=== PATIENT | female | born 1950 | race Caucasian/White ===

== ENCOUNTER 2017-05-15 11:29 | Emergency (ER) | payer BC ==
--- NOTE | 2017-05-15 13:06 | RAD ---
INDICATION: Left lower leg injury. TECHNIQUE: 2 views of the left lower leg were obtained. FINDINGS: The bones are normal alignment. No fracture is seen. IMPRESSION: NO EVIDENCE OF FRACTURE.
--- NOTE | 2017-05-15 13:07 | RAD ---
INDICATION: Left knee injury. TECHNIQUE: 4 views of the left knee were obtained. FINDINGS: There is soft tissue swelling anterior to the patella. The bones are in normal alignment. No joint effusion or fracture is seen. Joint spaces appear maintained. IMPRESSION: NO EVIDENCE FOR FRACTURE.
--- NOTE | 2017-05-15 13:09 | RAD ---
INDICATION: Left foot injury. TECHNIQUE: 3 views of the left foot were obtained. FINDINGS: There appears to be soft tissue swelling over the dorsal medial aspect of the foot. The bones are normal alignment. No fracture is seen. Joint spaces appear maintained. There is vascular calcifications and prominent calcaneal spurs. IMPRESSION: SOFT TISSUE SWELLING, NO FRACTURE IS SEEN.
[2017-05-15 14:09] VITALS: BP 127/68
--- NOTE | 2017-06-04 09:02 | UC ---
Francis Michael Angela, scribed for Haley Khan MD on 05/15/17 at 1219 . Lower Extremity/Ankle HPI - HPI Summary HPI Summary: This pt is a 66 y/o female presenting to [facility] c/o left upper leg pain and swelling, and left ankle pain s/p fall this morning at 0935. She was walking on a flat surface and was wearing shorts when she fell onto cement while standing. Pt reports she fell on her left knee. She states the area below her knee began to swell up and felt hot to the touch. Her pain is aggravated with ambulation. 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 Pt notes she has partial hip replacement on the right after she fell on ice. Pt is not on any anticoagulants. - History of Current Complaint Chief Complaint: UCLowerExtremity Stated Complaint: LEG INJURY Time Seen by Provider: 05/15/17 12:11 Hx Obtained From: Patient Onset/Duration: Sudden Onset - s/p fall this morning Aggravating Factor(s): Standing, Ambulation Alleviating Factor(s): Nothing - Allergies/Home Medications Allergies/Adverse Reactions: Allergies Allergy/AdvReac Type Severity Reaction Status Date / Time Codeine Allergy Severe Unknown Verified 05/15/17 11:45 Reaction Details Penicillins Allergy Severe Anaphylatic Verified 05/15/17 11:45 Shock Sulfa Drugs Allergy Intermediate Hives Verified 05/15/17 11:45 Diphenhydramine Allergy Unknown Verified 05/15/17 11:45 [From Benadryl] Reaction Details Garlic Allergy Unknown Verified 05/15/17 11:45 Reaction Details Onion Allergy Unknown Verified 05/15/17 11:45 Reaction Details Sassafras Oil Allergy Unknown Verified 05/15/17 11:45 Reaction Details Ciprofloxacin AdvReac Severe Diarrhea Verified 05/15/17 11:45 Pioglitazone [From Actos] AdvReac Diarrhea Verified 05/15/17 11:45 sleeping pills Allergy Hallucinati Uncoded 05/15/17 11:45 ons Home Medications: Home Medications Atorvastatin* [Lipitor*] 20 mg PO 1700 05/15/17 [History Confirmed 05/15/17] Azelastine HCl 137 mcg NA 05/15/17 [History] Cyclobenzaprine TAB* [Flexeril 10 MG TAB*] 10 mg PO BID PRN 05/15/17 [History Confirmed 05/15/17] Lisinopril [Lisinopril 2.5 MG-] 05/15/17 [History] PMH/Surg Hx/FS Hx/Imm Hx Endocrine History: Diabetes Cardiovascular History: Hypertension Respiratory History: Asthma - Surgical History Surgical History: Yes Surgery Procedure, Year, and Place: c section. partical hip replacement. WISDOM TEETH EXTRACTION - Family History Known Family History: Positive: Cardiac Disease, Hypertension, Diabetes, Other - LIVER CANCER - Social History Alcohol Use: Occasionally Substance Use Type: None Smoking Status (MU): Never Smoked Tobacco - Immunization History Most Recent Influenza Vaccination: 2012 Most Recent Tetanus Shot: UNSURE Review of Systems Constitutional: Negative Skin: Negative Eyes: Negative ENT: Negative Respiratory: Negative Neurovascular: Negative Musculoskeletal: Other: - left leg swelling and pain Neurological: Negative All Other Systems Reviewed And Are Negative: Yes Physical Exam Triage Information Reviewed: Yes Appearance: Well-Nourished Vital Signs: Initial Vital Signs Temp 98.1 F 05/15/17 11:40 Pulse 106 05/15/17 11:40 Resp 18 05/15/17 11:40 BP 127/75 05/15/17 11:40 Pulse Ox 97 05/15/17 11:40 Vital Signs Reviewed: Yes ENT Exam: Normal Respiratory Exam: Normal, Other - no dyspnea, no tachypnea, normal respiratory rate Cardiovascular Exam: Normal Cardiovascular: Positive: Other: - Heart rate regular, good general skin color, good capillary refill Abdominal Exam: Normal Abdomen Description: Positive: Nontender, No Organomegaly, Soft Bowel Sounds: Positive: Present Musculoskeletal: Positive: Other: - RLE: *exam* Neurological Exam: Normal - nonfocal, grossly intact Psychological Exam: Normal - conversing easily and appropriately Skin Exam: Normal - no visible or reported rash Diagnostics - Radiology Left Lower Leg XR Xray Interpretation: No Acute Changes - IMPRESSION: No evidence of fracture. ED physician has reviewed this radiology report and agrees. Radiology Interpretation Completed By: Radiologist Left Knee XR Xray Interpretation: No Acute Changes - IMPRESSION: No evidence for fracture. ED physician has reviewed this radiology report and agrees. Radiology Interpretation Completed By: Radiologist Left Foot XR Xray Interpretation: Positive (See Comments) - IMPRESSION: Soft tissue swelling , no fracture seen. ED physician has reviewed this radiology report and agrees. Radiology Interpretation Completed By: Radiologist Lower Extremity Course/Dx - Course Course Of Treatment: Pt declines analgesics. Reviewed xray, report review ( incl vasc calc) with pt. Reviewed results, coa, f/u recommendations. Questions answered to the best of my ability. - Differential Dx/Diagnosis Provider Diagnoses: leg and knee contusion / hematoma. heel spur Discharge - Discharge Plan Condition: Stable Disposition: HOME Patient Education Materials: Contusion in Adults (ED), Hematoma (ED), Heel Spur (ED) Forms: *Gen. Provider Communication, *Work Release Referrals: Sandee Louis MD [Primary Care Provider] - Additional Instructions: Follow up primary care physician per routine, next couple weeks if possible. Marcello as needed for comfort. Elevate your leg MUCH POSSIBLE. Please seek medical attention for worse or new problems. Ibuprofen as discussed (over the counter ok), as needed for pain / inflammation. Recommend at least 2x / day for the next 3 days. re: Heel spur - please follow up with your industrial engineering technician (next couple weeks, if possible). re: vascular calcification on x-ray - please follow with your primary care physician about this The documentation as recorded by the Francis lo Angela accurately reflects the service I personally performed and the decisions made by me, Haley Khan MD.
== END 2017-05-15 14:09 | disposition home or self-care (01) ==
LOC: UCEAST 11:29
DX: S80.02XA Contusion of left knee, initial encounter (principal); W18.30XA Fall on same level, unspecified, initial encounter; Y93.01 Activity, walking, marching and hiking; Y92.9 Unspecified place or not applicable; E11.9 Type 2 diabetes mellitus without complications; I10 Essential (primary) hypertension; J45.909 Unspecified asthma, uncomplicated; Z96.641 Presence of right artificial hip joint; Z88.1 Allergy status to other antibiotic agents; Z88.5 Allergy status to narcotic agent; Z88.0 Allergy status to penicillin; Z88.2 Allergy status to sulfonamides
CPT/HCPCS: 99212; G0463

== ENCOUNTER 2017-07-23 06:11 | Inpatient (IN) | payer BC ==
--- NOTE | 2017-07-09 18:13 | HP ---
HISTORY AND PHYSICAL: DATE OF ADMISSION/SURGERY: 07/23/17 DATE OF VISIT: 07/04/17 ATTENDING SURGEON: Dr. Kenan Lobo * (DICTATED BY CHRISTOFER HOWARD) PROCEDURE: Right hip conversion from hemiarthroplasty to a total hip arthroplasty. HISTORY OF PRESENT ILLNESS: The patient is a very pleasant [id number], who presents today for history and physical examination prior to undergoing her right hip surgery. In brief, the patient sustained a right hip fracture in 2009 and underwent a non-cemented hemiarthroplasty; however, developed pain over the past few months with x-ray showing the metal component of hemiarthroplasty was wearing through the acetabular bone. It was recommended by Dr. Lobo and by Dr. Grace that the patient undergo a full arthroplasty to prevent traumatic protrusio defect. The patient was in agreement with this. PAST MEDICAL HISTORY: 1. Asthma without recent exacerbation. 2. History of chronic coughing. 3. Coronary arterial disease. 4. Diabetes mellitus with an A1c around 8. 5. Frequent UTIs. 6. Hypertension. 7. Osteoarthritis. PAST SURGICAL HISTORY: 1. Right hip fracture, 2009, status post hemiarthroplasty. 2. , 1982. 3. [place] teeth extraction, 1986. MEDICATIONS: 1. Naproxen 50 mg 1 tablet twice daily as needed. 2. Aspirin 81 mg p.o. daily. 3. Cyclobenzaprine 10 mg 1 tablet at night as needed for spasms. 4. Advair Diskus 500/50 mcg/dose 1 puff p.o. b.i.d. 5. Lantus 40 units at bedtime. 6. Ibuprofen as needed. 7. Montelukast sodium 10 mg 1 tablet by mouth daily. 8. Levocetirizine dihydrochloride 5 mg 1 tablet by mouth daily. 9. Fluticasone 50 mcg/ACT 2 sprays in each nostril as needed. 10. Albuterol 1 nebulizer up to 4 times a day as needed. 11. Proventil inhaler 108 mcg/ACT 2 puffs by mouth every 4 hours. 12. Lisinopril 5 mg 1 tablet by mouth daily. 13. Atorvastatin 20 mg p.o. daily. 14. Glimepiride 2 mg daily. 15. Nystatin powder topically as needed to affected areas. SOCIAL HISTORY: The patient currently lives in a flat with 5 roommates. She is on 1 story. She denies any tobacco use. Positive intermittent alcohol use. Denies any intervenous drug use. 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 REVIEW OF SYSTEMS: General: Negative for fevers, chills, night sweats. The patient does have a history of body shaking after undergoing anesthesia in the past. HEENT: Negative for headaches, lightheadedness, or syncopal episodes. Poor dentition with no recent history of infection. Integument: Negative for abrasions, lesions, open wounds, or sores. Cardiothoracic: Negative for chest pain, palpitation, or edema. Positive for hypertension. Pulmonary: Positive for shortness of breath. Positive for chronic cough. Positive for history of asthma. No history of COPD. GI: Negative for nausea, vomiting, constipation, diarrhea, or GERD. : Positive for urinary tract infections with her last infection approximately 2 years ago. Musculoskeletal: Positive for generalized arthritis. Positive for right hip pain. Neuro: Negative for paresthesias, numbness. No history of seizure, stroke, or epilepsy. Endocrine : Positive for diabetes. Negative for thyroid disease. Hematologic: Negative for easy bruising or anemia. No history of excessive bleeding. No history of DVTs or PEs. Infectious Disease: Negative for MRSA, hepatitis C or HIV. PHYSICAL EXAMINATION GENERAL: Well appearing, no acute distress. Alert and oriented, appearing older than stated age. VITAL SIGNS: Height 63 inches, weight 180 pounds, blood pressure 122/78, respirations 14, temperature 98.0, pain level is 4/10, BMI 34. HEENT: Normocephalic, atraumatic. Poor dentition with no signs of obvious infection. PULMONARY: Clear to auscultation bilaterally. No crackles, rhonchi, or wheezes. Mild decreased breath sounds in bilateral bases. CARDIAC: Regular rate and rhythm. No murmurs, gallops, or rubs. No edema in the bilateral lower extremities. ABDOMEN: Soft, nontender, nondistended. Positive obese. Negative CVA tenderness bilaterally. NEUROLOGIC: Alert and oriented x2. Cranial nerves grossly intact. Sensation is intact to light touch in bilateral lower extremities. MUSCULOSKELETAL: Positive tenderness over the greater trochanteric area of the right hip and in the groin region. Mildly antalgic gait favoring the right- hand side. DIAGNOSTIC STUDIES: The patient underwent a right hip and pelvic x-ray obtained on 11/22/16, which showed a right hip arthroplasty. IMPRESSION AND PLAN: The patient is a very pleasant 67-year-old female, who has elected to undergo a conversion from a right hemiarthroplasty to a full right hip arthroplasty due to increased pain. She will obtain clearance by her primary physician this week. She will undergo preadmission testing later on this afternoon, which will be followed up with. She had no other questions or concerns, but will contact us if any do arise. CHRISTOFER HOWARD [id number]/[facility] #: [id number] BUDDY
[~2017-07-23 06:11] MED LIST: Buffered Lidocaine 0.9% SYRIN* 5 ML/SYR SYRINGE INTRADERM ONE; Buffered Lidocaine 0.9% SYRIN* 5 ML/SYR SYRINGE ONE; Clindamycin 900 MG IVPREMIX(* 900 MG/50 ML SDV IV ONE; Famotidine IV* 10 MG/ML 2 ML (20 mg) IV ONE; Famotidine IV* 10 MG/ML 2 ML (20 mg) ONE; Scopolamine 1.5 mg* PATCH ONE; Scopolamine 1.5 mg* PATCH TRANSDERM ONE
[2017-07-23] MEDS ORDERED: Bupivacaine 0.5% SDV PF* 30 ML VIAL ONE (07:23)
[2017-07-23] MEDS ORDERED: Midazolam* 1 MG/ML 5 ML VIAL (5 MG) ONE (07:24)
[2017-07-23] MEDS ORDERED: Morphine PF AMP (0.5MG/ML)* 5 MG/10 ML AMP ONE (07:24)
[2017-07-23] MEDS ORDERED: fentaNYL* 50 MCG/ML 2 ML VIAL (100 MCG VIAL) ONE (07:24)
[2017-07-23] MEDS ORDERED: Propofol* 10 MG/ML 20 ML BTL IV PUSH ONE (07:58)
[2017-07-23] MEDS ORDERED: Lidocaine 2% PF * 5 ML VIAL ONE (07:58)
[2017-07-23] MEDS ORDERED: Acetaminophen IV 1GM/100ML * 1,000 MG/100 ML VIAL IVPB ONE (08:30)
[2017-07-23] MEDS ORDERED: fentaNYL* 50 MCG/ML 2 ML VIAL (100 MCG VIAL) IV PRN (08:30)
[2017-07-23] MEDS ORDERED: oxyCODONE TAB* 5 MG TAB PO PRN ×2 (08:30→08:33)
[2017-07-23] MEDS ORDERED: Nalbuphine* 20 MG/ML 1 ML VIAL IV PRN ×2 (08:30→08:33)
[2017-07-23] MEDS ORDERED: PROCHLORPERAZINE INJ 5 MG/ML 2 ML VIAL IV PRN (08:30)
[2017-07-23] MEDS ORDERED: Ondansetron INJ* 2 MG/ML VIAL IV PRN (08:33)
[2017-07-23] MEDS ORDERED: Naloxone* 0.4 MG/ML 1 ML VIAL IV PRN (08:33)
[2017-07-23] MEDS ORDERED: EPHEDrine (Pressors)* 50 MG/ML VIAL ONE (09:26)
[2017-07-23] MEDS ORDERED: Ondansetron INJ* 2 MG/ML VIAL ONE (09:28)
[2017-07-23] MEDS ORDERED: Polyethylene Glycol 3350* 17 GM PACKET PO PRN (10:06)
[2017-07-23] MEDS ORDERED: Bisacodyl SUPP* 10 MG SUPP PR PRN (10:06)
[2017-07-23] MEDS ORDERED: Cyclobenzaprine TAB* 10 MG PO PRN (10:18)
[2017-07-23] MEDS ORDERED: Acetaminophen IV 1GM/100ML * 100 ML ONE (10:34)
[2017-07-23] MEDS ORDERED: Albuterol 2.5 MG/3 ML NEB.SOL* (0.083%) INH PRN (11:10)
[2017-07-23] MEDS ORDERED: Dextrose 50% Syringe 50 ML* 25 GM/50 ML SYRINGE IV PUSH PRN (11:10)
--- NOTE | 2017-07-23 12:11 | RAD ---
HISTORY: Status post right hip arthroplasty COMPARISONS: May 23, 2017 VIEWS: 1, frontal view of the pelvis FINDINGS: BONE DENSITY: Normal. BONES: There has been interval conversion of a right hip] arthroplasty to total arthroplasty . There is no hardware failure or osteolysis. JOINTS: The patient is status post right hip arthroplasty. ALIGNMENT: There is no dislocation. SOFT TISSUES: Unremarkable. OTHER FINDINGS: None. IMPRESSION: STATUS POST RIGHT HIP ARTHROPLASTY
[2017-07-23] MEDS: Insulin LISPRO* 1 UNITS UNIT SUBCUT SCH ×2 (12:44→17:04)
--- NOTE | 2017-07-23 13:32 | CONS ---
CC: Sandee Louis MD; Dr. Lobo * CONSULTATION REPORT: DATE OF CONSULT: 07/23/17 PRIMARY CARE PROVIDER: Sandee Louis MD ATTENDING PHYSICIAN WHILE IN THE HOSPITAL: Heather Bennett MD (report dictated by Edilberto Holloway NP) REQUESTING PHYSICIAN FOR CONSULT: Dr. Lobo REASON FOR MEDICAL CONSULTATION: Evaluation and medical management of comorbid medical conditions. HISTORY OF PRESENT ILLNESS: Mrs. Riggins is a 67-year-old female patient who carries a history of asthma, diabetes, hypertension, arthritis, hyperlipidemia, and a history of anxiety. She comes in to our orthopedic service today for an elective right total hip. She was seen in the outpatient setting about 7 years ago. She had a right hip kiki secondary to a hip fracture. In the last several months, she has been having pain on this hip. X-ray imaging was obtained and it did show that the components were failing. So at that point, it was felt that she would benefit from a total hip, which she underwent today. She was evaluated in the PACU. She does not appear to be in any acute distress. She is awake, she is alert, she is oriented x3. She states that she is not having any chest pain or shortness of breath. She denies having any abdominal pain. She states she does not feel nauseous. She states she cannot move her toes quite yet and has no feeling down there. She did undergo a spinal. She states that she is not having any pain. She just feels tired. Again, she does have a significant medical history. So, we were asked to evaluate and consult. PAST MEDICAL HISTORY: Significant for: 1. Asthma. 2. Anxiety. 3. Diabetes. 4. Hypertension. 5. Arthritis. 6. Hyperlipidemia. PAST SURGICAL HISTORY: 1. She has had right hip hemiarthroplasty. Now, she is status post right total hip arthroplasty. 2. . 3. Teeth extraction. MEDICATIONS: Home meds according to the preop list includes: 1. Naproxen 500 mg p.o. b.i.d. 2. Singulair 10 mg p.o. daily. 3. Lisinopril 5 mg daily. 4. Levocetirizine 5 mg at bedtime. 5. Lantus 40 units subcu at bedtime. 6. Glimepiride 2 mg p.o. b.i.d. 7. Advair 1 puff inhaled b.i.d. 8. Flexeril 10 mg daily. 9. Vitamin D3 3000 units p.o. daily. 10. Azelastine 137 mcg nasally in the morning. 11. Lipitor 20 mg daily. 12. Acetaminophen 650 mg every 4 hours as needed. 13. Albuterol 2 puffs inhaled every 4 to 6 hours as needed for shortness of breath. ALLERGIES TO MEDICATIONS: Include PENICILLIN, ACTOS, CODEINE, BENADRYL, and CIPRO. FAMILY HISTORY: Both her parents were diabetic. Her mother did have liver cancer. SOCIAL HISTORY: She does not smoke. She rarely drinks alcohol, may be once a year. Her surrogate decision maker is her daughter. REVIEW OF SYSTEMS: There is no documented fever. She denied having any significant weight change. There was no double vision. She denies having any ear discharge. There is no rhinorrhea. No sore throat. No thyroid enlargement. She denies having any chest pain. No orthopnea. There is no nocturnal dyspnea. She denies having any abdominal pain. There is no nausea, no vomiting. There was no dysuria, no frequency. There was no seizure. No loss of consciousness. No pruritus and no skin ulcerations. Review of 14 systems completed, all others negative. PHYSICAL EXAMINATION: Vital Signs: Blood pressure 100/50, pulse 76, respirations 17, O2 sat 100% on 2 L, temperature 96.8. General: At this time, Mrs. Riggins is a 67-year-old female patient. She is sitting in the PACU bed. She does not appear to be in any acute distress. HEENT: Head: Atraumatic, normocephalic. Eyes: EOMs intact. Sclerae anicteric, not pale. Neck: Supple. Throat: Oral mucosa appears to be moist. No oropharyngeal erythema. Heart sounds S1, S2. Regular rate and rhythm. No murmurs, rubs, or gallops. Lungs: Clear to auscultation. No wheezes, rales, or rhonchi. Abdomen: Soft, flat, nontender. Bowel sounds hypoactive. Extremities: She is not moving the lower extremities. At this point, she did have a spinal. She is moving the upper extremities with 5/5 strength. Neurologically, the patient is awake. She is alert. She is oriented x3. No gross focal deficits. Skin: Intact with the exception she has an incision to the right hip, which is covered with dressing. It is clean, dry, and intact. LABORATORY DATA/DIAGNOSTIC STUDIES: Preop WBC is 8.4, RBC of 4.77, hemoglobin of 13.8, hematocrit of 40, platelet count of 240. PTT of 22.4. INR of 0.93. Sodium is 137, potassium 4, chloride 100, bicarb 32, BUN 16, creatinine of 0.76 , glucose was 182. Her A1c was 8.6 preop. Urine showed 2+ leukocyte esterase, 3+ wbc, 3+ urine bacteria, which did grew out E. coli and according to notes was treated. She had an EKG preop, which showed a normal sinus rhythm with a rate of 98. No ST elevations or T wave inversions. Old medical records were reviewed. She did have a chest x-ray, which showed no active cardiopulmonary disease. ASSESSMENT AND PLAN: Mrs. Riggins is a 67-year-old female patient coming in to the orthopedic services today for a right total hip arthroplasty. We were asked to evaluate and consult. Recommendations at this point are: 1. Status post right total hip arthroplasty. I will defer the management to Dr. Lobo and his team. 2. Asthma. I have ordered p.r.n. albuterol and incentive spirometry has been ordered as well by the primary team. 3. Anxiety. Supportive care. 4. Diabetes. lispro sliding care. I will put her on 20 units of Lantus until she is taking good p.o. and I will put her on 40. 5. Hypertension. She did have a spinal anesthetic. Her blood pressure down here has been in the 100 to 110. My plan will be to just hold her lisinopril and restart it when blood pressure increases after spinal anesthetic wears off. 6. Arthritis. Continue with her current medical management. She has p.r.n. pain management has been ordered and I will defer management to Dr. Lobo and her primary. 7. Hyperlipidemia. Continue statin therapy. 8. Deep vein thrombosis prophylaxis. Defer to the primary team. 9. Code status. Full code. 10. Fluids, electrolytes, and nutrition. I would recommend a consistent carb diet. TIME SPENT: On consult 60 minutes, greater than half the time spent face-to- face with the patient obtaining my history and physical, the other half time spent going over plan of care with the patient and implementing plan of care. I did discuss this with my attending, Dr. Bennett, she is in agreement. EDILBERTO HOLLOWAY NP [id number]/[facility] #: [id number] BUDDY
--- NOTE | 2017-07-23 14:23 | OP ---
DATE OF OPERATION: 07/23/17 - ROOM #342 DATE OF : 52. ATTENDING SURGEON: Kenan Lobo MD. ASSISTANTS: 1. Haley Santizo RPA 2. Sofya Gomez NP. ANESTHESIA: Spinal sedation. PRE-OPERATIVE DIAGNOSIS: Failing right hip hemiarthroplasty. POST-OPERATIVE DIAGNOSIS: Failing right hip hemiarthroplasty. OPERATIVE PROCEDURE: 1. Revision right hip hemiarthroplasty. 2. Right total hip arthroplasty. ESTIMATED BLOOD LOSS: 100 mL. COMPLICATIONS: None. HARDWARE: Trilogy 46 mm cup with 2 screws, + 0, 28 mm head. SUMMARY: Ms. Riggins is now a 67-year-old female who 7 years ago had fallen and sustained a right hip fracture. She underwent a right hip hemiarthroplasty on [facility] and had done well. Over the past 9 months or so however, her x- rays have changed where the monoblock head has been starting to wear into her acetabulum. She had a good several mm of bone for several years between the head and the pelvis, but this is narrowed such that it appeared that she had lost most of the bone and the femoral head would become a protrusio into the pelvis shortly. I discussed with her a revision of the hemiarthroplasty to a total hip arthroplasty and while reluctant to undergo surgery, she eventually had realized that it would be better if something done before she fell and the femoral head caused a protrusio defect. Risks of surgery such as infection, scar formation, stiffness, DVT, pulmonary embolism, hardware failure, as well as instability and leg length discrepancy were some of the risks discussed. She had been declared medically optimized and wished to proceed. DESCRIPTION OF PROCEDURE: The patient was brought to the OR and spinal anesthesia was introduced. Marin catheter was then placed. She was then rolled into the left lateral decubitus position and an axillary roll was placed. She was quite comfortable in that position. Right hip area was prepped and then draped. Haley Santizo was present through positioning, draping, surgical approach, positioning of the implants and closure. The case could not have been donne without an financial assistant. Old incision was used and an incision was carried down through the skin and subcutaneous scar. The scar was still fairly dense and I continued to cut through the scar towards the greater trochanter until I encountered fascia. West was then used to peel some of the scar away from the fascia and eventually the fascia was nicely exposed. Sharp incision was made and bursal-like tissue was present over the greater trochanter. Electrocautery was used to take this down. I tried to come under her gluteus medius/gluteus minimus, but it was difficult to tell with the tissue planes because of the scar. Dissection was then began right along the back side of the greater trochanter, and I knew I was in the right area as I came across the Ethibond sutures that I used to repair posterior capsule and short external rotators. Eventually, neck and head were exposed and a small T- capsulotomy was made. It was seen where she had worn through the acetabulum toward the back side a little bit as well, as the bone was very thin right in this area. Using the pickups, I was able to peel it back and it broke off. It was however no more than 2 or 3 mm in width/thickness. Head was then easily dislocated. Remaining thin bone along the edge of the acetabulum was then removed using a rongeur. Monoblock head was then removed using the head disimpacters. Curette was then used to scrape the medial wall and I could feel that I had a solid acetabulum all the way around. There were no bony holes. Curette was used to scrape some of the soft tissues away and then a 44 followed by 45 reamer were then run. I had nice bleeding bone all around. A 46 mm cup was then impacted into place. Two screws were placed and a wonderful bite was obtained. Trial liner was placed and she was trialed with a 0 head. With a flat liner, she tended to leave her out at about 30 degrees of internal rotation with a hip in neutral and full adduction. She was then trialed with an elevated liner and would only start to leave her out at 45 degrees and did not come out until 60. Her leg length appeared good with a 0, but a little long with a 3.5. Trial liner and head were removed and an elevated liner was then impacted into place. She was again trialed and I decided to go with a 0. The 0 head was then impacted into place and the hip was again copiously pulse lavaged. Six liters will be used through the case. Capsule and scar of the short external rotators were all repaired together to the posterior aspect of the greater trochanter once again. Fascia was repaired using interrupted #1 Vicryl sutures. Subcutaneous tissues were reapproximated with 2-0 Vicryl. Skin was closed using kym. Sterile dressing was applied. The patient was then rolled on to the hospital bed and was stable on transfer to the recovery room. [id number]/[facility] #: [id number] BUDDY
[2017-07-23] MEDS: Clindamycin 600 MG IVPREMIX(* 600 MG/50 ML SDV IV SCH (16:41)
[2017-07-23] MEDS: Atorvastatin* 20 MG TAB PO SCH (16:48)
[2017-07-23] MEDS ORDERED: Warfarin TAB(*) 4 MG PO ONE (17:00)
[2017-07-23] MEDS: Acetaminophen TAB* 325 MG PO SCH (18:15)
[2017-07-23] MEDS: Mometasone/Formoter 200/5 MDI INH SCH (19:50)
--- NOTE | 2017-07-23 20:23 | RAD ---
INDICATION: Cough COMPARISON: Chest x-ray dated July 04, 2017 TECHNIQUE: Single AP portable view of the chest was obtained. FINDINGS: Image quality is compromised due to the relative inferiority of a portable chest x-ray. The heart and mediastinum exhibit normal size and contour. The lungs are grossly clear. There is no evidence of a large pleural effusion. Visualized bones are normal for the patient's age. IMPRESSION: No radiographic evidence for acute cardiopulmonary abnormality on this portable chest x-ray.
[2017-07-23] MEDS: Montelukast Sodium TAB* 10 MG PO SCH (21:36)
[2017-07-23] MEDS: Cetirizine* 10 MG TAB PO SCH (21:37)
[2017-07-23] MEDS: Docusate CAP* 100 MG PO SCH (21:37)
[2017-07-23] MEDS: Magnesium Hydroxide LIQ* 30 ML UDC PO SCH (21:37)
[2017-07-23] MEDS: Insulin GLARGINE(*) 1 UNITS UNIT SUBCUT SCH (21:40)
[2017-07-24] MEDS ORDERED: Morphine INJ* 2 MG/ML 1 ML CARPUJECT IV PRN
[2017-07-24] MEDS ORDERED: Ondansetron TAB* 4 MG PO PRN
[2017-07-24] MEDS ORDERED: Ondansetron INJ* 2 MG/ML VIAL IV PRN
[2017-07-24] MEDS: Clindamycin 600 MG IVPREMIX(* 600 MG/50 ML SDV IV SCH ×2 (00:19→07:46)
[2017-07-24] MEDS: Acetaminophen TAB* 325 MG PO SCH ×2 (01:55→10:36)
[2017-07-24] MEDS: oxyCODONE TAB* 5 MG TAB PO PRN ×4 (03:18→22:41)
[2017-07-24 05:07] LABS: Hematocrit 32 % (35-47); Mean Corpuscular HGB Conc 34 g/dl (31-36); Mean Corpuscular Hemoglobin 29 pg (27-31); Mean Corpuscular Volume 84 fL (80-97); Mean Platelet Volume 8 um3 (7.4-10.4); Red Blood Count 3.82 10^6/ul (4.0-5.4); Red Cell Distribution Width 13 % (10.5-15); White Blood Count 11.5 10^3/ul (3.5-10.8)
[2017-07-24 05:40] LABS: BUN/Creatinine Ratio 13.4 (8-20); Calcium 8.2 mg/dL (8.6-10.3); EGFR African American 113.3 (>60); EGFR Non-African American 88.1 (>60); Potassium 3.7 mmol/L (3.5-5.0)
[2017-07-24] MEDS: Magnesium Hydroxide LIQ* 30 ML UDC PO SCH ×2 (07:50→20:50)
[2017-07-24] MEDS: AZELASTINE HCL 137 MCG SCH (07:53)
[2017-07-24] MEDS: Mometasone/Formoter 200/5 MDI INH SCH ×2 (07:53→20:42)
[2017-07-24] MEDS: Docusate CAP* 100 MG PO SCH ×2 (07:53→20:51)
[2017-07-24] MEDS: Vitamin THERAPEUTIC TAB PO SCH (07:54)
--- NOTE | 2017-07-24 07:54 | PN ---
Progress Note - Progress Note Date of Service: 07/24/17 SOAP: Subjective: []Patient seen OOB in chair. Pain is tolerable. Marin out this morning without urination yet. +vomit yesterday night, none since. Using incentive spirometer. No chest pain, shortness of breath, chills, nausea, vomiting, dizziness or leg numbness. Objective: [] Vital Signs Temp 99.1 F 07/24/17 03:17 Pulse 101 07/24/17 03:17 Resp 16 07/24/17 05:35 BP 112/53 07/24/17 03:17 Pulse Ox 92 07/24/17 03:17 Intake & Output 07/23/17 07/24/17 07/24/17 18:59 06:59 18:59 Intake Total 2260 225 Output Total 1275 850 Balance 985 -625 Intake: IV Fluids 2050 CLINDAMYCIN 900MG 50 LR 2000 Oral 210 225 Output: Urine 400 Marin 900 450 Emesis 375 Other: Estimated Blood Loss 100 Comment Laboratory Last Values WBC 11.5 10^3/ul (3.5-10.8) H 07/24/17 04:49 RBC 3.82 10^6/ul (4.0-5.4) L 07/24/17 04:49 Hgb 11.0 g/dl (12.0-16.0) L 07/24/17 04:49 Hct 32 % (35-47) L 07/24/17 04:49 MCV 84 fL (80-97) 07/24/17 04:49 MCH 29 pg (27-31) 07/24/17 04:49 MCHC 34 g/dl (31-36) 07/24/17 04:49 RDW 13 % (10.5-15) 07/24/17 04:49 Plt Count 187 10^3/ul (150-450) 07/24/17 04:49 MPV 8 um3 (7.4-10.4) 07/24/17 04:49 Neut % (Auto) 78.4 % (38-83) 07/24/17 04:49 Lymph % (Auto) 12.7 % (25-47) L 07/24/17 04:49 [place] % (Auto) 8.3 % (1-9) 07/24/17 04:49 Eos % (Auto) 0.3 % (0-6) 07/24/17 04:49 Baso % (Auto) 0.3 % (0-2) 07/24/17 04:49 Absolute Neuts (auto) 9.0 10^3/ul (1.5-7.7) H 07/24/17 04:49 Absolute Lymphs (auto) 1.5 10^3/ul (1.0-4.8) 07/24/17 04:49 Absolute Monos (auto) 1.0 10^3/ul (0-0.8) H 07/24/17 04:49 Absolute Eos (auto) 0 10^3/ul (0-0.6) 07/24/17 04:49 Absolute Basos (auto) 0 10^3/ul (0-0.2) 07/24/17 04:49 Absolute Nucleated RBC 0 10^3/ul 07/24/17 04:49 Nucleated RBC % 0 07/24/17 04:49 INR (Anticoag Therapy) 1.07 (0.89-1.11) 07/24/17 04:49 Sodium 133 mmol/L (133-145) 07/24/17 04:49 Potassium 3.7 mmol/L (3.5-5.0) 07/24/17 04:49 Chloride 97 mmol/L (101-111) L 07/24/17 04:49 Carbon Dioxide 31 mmol/L (22-32) 07/24/17 04:49 Anion Gap 5 mmol/L (2-11) 07/24/17 04:49 BUN 9 mg/dL (6-24) 07/24/17 04:49 Creatinine 0.67 mg/dL (0.51-0.95) 07/24/17 04:49 Est GFR ( Amer) 113.3 (>60) 07/24/17 04:49 Est GFR (Non-Af Amer) 88.1 (>60) 07/24/17 04:49 BUN/Creatinine Ratio 13.4 (8-20) 07/24/17 04:49 Glucose 148 mg/dL (70-100) H 07/24/17 04:49 POC Glucose (mg/dL) 140 mg/dL (70-100) H 07/23/17 21:16 Calcium 8.2 mg/dL (8.6-10.3) L 07/24/17 04:49 Blood Type O Negative 07/23/17 06:35 Antibody Screen Negative 07/23/17 06:35 General: OOB in chair. Calm, cooperative, no acute distress RLE: Dressing CDI. BL LE: Calves supple, nontender, no erythema, no edema, no palpable cords. Negative aga's sign. DP/PT 2+. Capillary refill brisk distally. Sensation intact distally. Assessment: []POD 1 s/p revision R hip hemiarthroplasty, right total hip arthroplasty 07/23 Dr. Lobo Plan: []WBAT PT/OT Encouraged incentive spirometry. Monitor HR and Temp Plan for KATLIN 07/25 or 07/26
[2017-07-24] MEDS: Heparin VIAL(*) 5000 UNITS/ML VIAL (FIVE THOUSAND) SUBCUT SCH ×2 (07:55→20:54)
[2017-07-24] MEDS ORDERED: LISINOPRIL PO SCH (09:00)
[2017-07-24] MEDS: Insulin LISPRO* 1 UNITS UNIT SUBCUT SCH ×3 (09:12→18:17)
[2017-07-24] MEDS ORDERED: Warfarin TAB(*) 6 MG PO SCH (17:00)
[2017-07-24] MEDS: Atorvastatin* 20 MG TAB PO SCH (18:19)
--- NOTE | 2017-07-24 18:22 | PN ---
Subjective Date of Service: 07/24/17 Interval History: Patient seen and examined at bedside. Denies fever, chills, shortness of breath , chest discomfort, N/V/D. Pt states that her pain is controlled. Urinating without difficulty. Family History: Unchanged from Admission Social History: Unchanged from Admission Past Medical History: Unchanged from Admission Objective Active Medications: Acetaminophen (Tylenol Tab*) 650 mg PO Q4H PRN Reason: pain, fever Albuterol (Ventolin 2.5 Mg/3 Ml Neb.Melanie*) 2.5 mg INH Q2H PRN Reason: SOB/ WHEEZING Atorvastatin Calcium (Lipitor*) 20 mg PO 1700 MIGNON Bisacodyl (Dulcolax Supp*) 10 mg [place] DAILY PRN Reason: constipation Cetirizine HCl (Zyrtec*) 10 mg PO BEDTIME MIGNON Cyclobenzaprine HCl (Flexeril Tab*) 10 mg PO QPM PRN Reason: muscle spasms Dextrose (D50w Syringe 50 Ml*) 12.5 gm IV PUSH .FOR FS < 60 - SS PRN Reason: FS < 60 Docusate Sodium (Colace Cap*) 100 mg PO BID MIGNON Heparin Sodium (Porcine) (Heparin Vial(*)) 5,000 units SUBCUT Q12HR MIGNON Lactated Ringer's (Lactated Ringers 1000 Ml Bag*) 1,000 mls @ 125 mls/hr IV PER RATE MIGNON Insulin Glargine (Lantus(*)) 20 units SUBCUT Q24H MIGNON Insulin Human Lispro (Humalog*) 0 units SUBCUT AC MIGNON Lactulose (Lactulose*) 30 ml PO BID PRN Reason: CONSTIPATION Magnesium Hydroxide (Milk Of Magnesia Liq*) 30 ml PO BID MIGNON Mometasone Furoate/Formoterol Fumar (Dulera 200/5 Mdi*) 2 puff INH BID MIGNON Montelukast Sodium (Singulair Tab*) 10 mg PO BEDTIME MIGNON Morphine Sulfate (Morphine Inj (Syringe)*) 2 mg IV Q2H PRN Reason: PAIN - BREAKTHROUGH Multivitamins (Theragran Tab*) 1 tab PO DAILY [facility] Non-Formulary Medication (Azelastine Hcl [Azelastine Hcl]) 137 mcg NA QAM MIGNON Ondansetron HCl (Zofran Inj*) 4 mg IV Q6H PRN Reason: nausea Ondansetron HCl (Zofran Tab*) 4 mg PO Q6H PRN Reason: NAUSEA Oxycodone HCl (Roxycodone Tab*) 5 mg PO Q4H PRN Reason: PAIN - MILD TO MODERATE Oxycodone HCl (Roxycodone Tab*) 10 mg PO Q4H PRN Reason: PAIN - MODERATE TO SEVERE Pharmacy Profile Note (Scopolamine Patch Remove*) 1 note PATCH OFF ONCE ONE Stop: 07/26/17 06:01 Polyethylene Glycol/Electrolytes (Miralax*) 17 gm PO DAILY PRN Reason: Constipation Vital Signs 07/23/17 07/23/17 07/23/17 19:23 19:52 20:00 Temperature 98.1 F Pulse Rate 114 96 Respiratory 16 16 16 Rate Blood Pressure 134/59 (mmHg) O2 Sat by Pulse 94 97 Oximetry 07/23/17 07/24/17 07/24/17 23:43 00:05 03:17 Temperature 98.9 F 99.1 F Pulse Rate 128 101 Respiratory 18 18 Rate Blood Pressure 141/57 112/53 (mmHg) O2 Sat by Pulse 96 92 Oximetry 07/24/17 07/24/17 07/24/17 03:18 05:35 07:38 Temperature 98.8 F Pulse Rate 97 Respiratory 18 16 16 Rate Blood Pressure 111/54 (mmHg) O2 Sat by Pulse 91 Oximetry 07/24/17 07/24/17 07/24/17 11:19 11:59 13:50 Temperature 98.7 F Pulse Rate 92 70 Respiratory 16 16 16 Rate Blood Pressure 119/54 (mmHg) O2 Sat by Pulse 93 96 Oximetry Oxygen Devices in Use Now: None Appearance: NAD, laying in bed Respiratory: Symmetrical Chest Expansion and Respiratory Effort, Clear to Auscultation Cardiovascular: NL Sounds; No Murmurs; No JVD, RRR Abdominal: NL Sounds; No Tenderness; No Distention Extremities: No Edema Skin: No Rash or Ulcers Neurological: Alert and Oriented x 3, NL Muscle Strength and Tone Lines/Tubes/Other Access: Clean, Dry and Intact Peripheral IV - site benign Nutrition: Taking PO's Result Diagrams: 07/24/17 04:49 07/24/17 04:49 Assess/Plan/Problems-Billing Assessment: Ms. Riggins is a 67 yo female with PMH significant for asthma, anxiety, DM, HTN, HLD and arthritis who presented to the hospital for an elective right total hip arthroplasty with Mirtha Lobo on 07/23/17. - Patient Problems (1) Status post total hip replacement, right Code(s): Z96.641 - PRESENCE OF RIGHT ARTIFICIAL HIP JOINT SNOMED Code(s): 155264913726 Comment: - POD #1, management per Orthopedics - Trend HH - Continue pain management, OT/PT and bowel regimen (2) Asthma Code(s): J45.909 - UNSPECIFIED ASTHMA, UNCOMPLICATED SNOMED Code(s): 062215395 Comment: - Continue albuterol PRN and IS (3) Anxiety Code(s): F41.9 - ANXIETY DISORDER, UNSPECIFIED SNOMED Code(s): 28112400 Comment: - Supportive Care (4) Diabetes Code(s): E11.9 - TYPE 2 DIABETES MELLITUS WITHOUT COMPLICATIONS SNOMED Code(s) : 01962030 Comment: - Glucose 90-180's - Glucose checks AC and HS - Continue Lispro SS and Lantus (5) HTN (hypertension) Code(s): I10 - ESSENTIAL (PRIMARY) HYPERTENSION SNOMED Code(s): 72790807 Comment: - SBP 110-140's - Resume Lisinopril in AM if BP allows (6) HLD (hyperlipidemia) Code(s): E78.5 - HYPERLIPIDEMIA, UNSPECIFIED SNOMED Code(s): 82884173 Comment: - Continue statin (7) DVT prophylaxis Code(s): MLJ1185 - SNOMED Code(s): 880903202 Comment: - SQ Heparin bridge to Warfarin per Ortho (8) Full code status Code(s): Z78.9 - OTHER SPECIFIED HEALTH STATUS SNOMED Code(s): 292976297 Status and Disposition: Inpatient. Disposition per Orthopedics. Thank you for this consult, we will continue to follow along.
[2017-07-24] MEDS ORDERED: Acetaminophen TAB* 325 MG PO PRN (18:30)
[2017-07-24] MEDS: Cetirizine* 10 MG TAB PO SCH (20:51)
[2017-07-24] MEDS: Montelukast Sodium TAB* 10 MG PO SCH (20:51)
[2017-07-24] MEDS: Insulin GLARGINE(*) 1 UNITS UNIT SUBCUT SCH (20:54)
[2017-07-25] MEDS: oxyCODONE TAB* 5 MG TAB PO PRN ×3 (04:23→13:16)
[2017-07-25 05:26] LABS: Hematocrit 33 % (35-47); Hemoglobin 11.2 g/dl (12.0-16.0)
--- NOTE | 2017-07-25 06:50 | PN ---
Progress Note - Progress Note Date of Service: 07/25/17 SOAP: Subjective: Pt reports doing OK- hard to get leg moving to get out of bed. Did walk back from PT yesterday afternoon and surprised herself. Objective: VVS- afebrile Labs: 11., INR: 1.32 Right hip: Wound benign, no drainage, no erythemia. Still N/V intact distally Assessment: Stable Plan: Continue: -OOB/PT -DVT prophalaxis -care -D/C planning
[2017-07-25] MEDS: Docusate CAP* 100 MG PO SCH ×2 (08:26→22:08)
[2017-07-25] MEDS: Vitamin THERAPEUTIC TAB PO SCH (08:26)
[2017-07-25] MEDS: Magnesium Hydroxide LIQ* 30 ML UDC PO SCH ×2 (08:26→22:08)
[2017-07-25] MEDS: Mometasone/Formoter 200/5 MDI INH SCH ×2 (08:28→20:36)
[2017-07-25] MEDS: Insulin LISPRO* 1 UNITS UNIT SUBCUT SCH ×3 (08:29→17:35)
[2017-07-25] MEDS: Heparin VIAL(*) 5000 UNITS/ML VIAL (FIVE THOUSAND) SUBCUT SCH ×2 (08:30→22:11)
[2017-07-25] MEDS: AZELASTINE HCL 137 MCG SCH (08:31)
--- NOTE | 2017-07-25 13:36 | PN ---
Subjective Date of Service: 07/25/17 Interval History: Patient seen and examined at bedside. Denies fever, chills, shortness of breath , chest discomfort, N/V/D. Pt states that pain is controlled. Family History: Unchanged from Admission Social History: Unchanged from Admission Past Medical History: Unchanged from Admission Objective Active Medications: Acetaminophen (Tylenol Tab*) 650 mg PO Q4H PRN Reason: pain, fever Albuterol (Ventolin 2.5 Mg/3 Ml Neb.Melanie*) 2.5 mg INH Q2H PRN Reason: SOB/ WHEEZING Atorvastatin Calcium (Lipitor*) 20 mg PO 1700 MIGNON Bisacodyl (Dulcolax Supp*) 10 mg [place] DAILY PRN Reason: constipation Cetirizine HCl (Zyrtec*) 10 mg PO BEDTIME MIGNON Cyclobenzaprine HCl (Flexeril Tab*) 10 mg PO QPM PRN Reason: muscle spasms Dextrose (D50w Syringe 50 Ml*) 12.5 gm IV PUSH .FOR FS < 60 - SS PRN Reason: FS < 60 Docusate Sodium (Colace Cap*) 100 mg PO BID MIGNON Heparin Sodium (Porcine) (Heparin Vial(*)) 5,000 units SUBCUT Q12HR MIGNON Lactated Ringer's (Lactated Ringers 1000 Ml Bag*) 1,000 mls @ 125 mls/hr IV PER RATE MIGNON Insulin Glargine (Lantus(*)) 20 units SUBCUT Q24H MIGNON Insulin Human Lispro (Humalog*) 0 units SUBCUT AC MIGNON Lactulose (Lactulose*) 30 ml PO BID PRN Reason: CONSTIPATION Magnesium Hydroxide (Milk Of Magnesia Liq*) 30 ml PO BID MIGNON Mometasone Furoate/Formoterol Fumar (Dulera 200/5 Mdi*) 2 puff INH BID MIGNON Montelukast Sodium (Singulair Tab*) 10 mg PO BEDTIME MIGNON Morphine Sulfate (Morphine Inj (Syringe)*) 2 mg IV Q2H PRN Reason: PAIN - BREAKTHROUGH Multivitamins (Theragran Tab*) 1 tab PO DAILY [facility] Non-Formulary Medication (Azelastine Hcl [Azelastine Hcl]) 137 mcg NA QAM MIGNON Ondansetron HCl (Zofran Inj*) 4 mg IV Q6H PRN Reason: nausea Ondansetron HCl (Zofran Tab*) 4 mg PO Q6H PRN Reason: NAUSEA Oxycodone HCl (Roxycodone Tab*) 5 mg PO Q4H PRN Reason: PAIN - MILD TO MODERATE Oxycodone HCl (Roxycodone Tab*) 10 mg PO Q4H PRN Reason: PAIN - MODERATE TO SEVERE Pharmacy Profile Note (Scopolamine Patch Remove*) 1 note PATCH OFF ONCE ONE Stop: 07/26/17 06:01 Pharmacy Profile Note (Coumadin Daily Reminder*) 1 note FOLLOW UP 1700 MIGNON Polyethylene Glycol/Electrolytes (Miralax*) 17 gm PO DAILY PRN Reason: Constipation Warfarin Sodium (Coumadin Tab(*)) 5 mg PO ONCE@1700 ONE Stop: 07/25/17 17:01 Vital Signs 07/24/17 07/24/17 07/24/17 13:50 15:32 18:06 Temperature 98.8 F Pulse Rate 70 95 Respiratory 16 17 16 Rate Blood Pressure 119/53 (mmHg) O2 Sat by Pulse 96 95 Oximetry 07/24/17 07/24/17 07/24/17 19:41 20:00 22:41 Temperature 98.7 F Pulse Rate 117 Respiratory 18 18 18 Rate Blood Pressure 138/47 (mmHg) O2 Sat by Pulse 95 Oximetry 07/24/17 07/25/17 07/25/17 23:35 01:07 03:27 Temperature 99.4 F 98.8 F Pulse Rate 111 102 Respiratory 18 16 16 Rate Blood Pressure 116/48 119/56 (mmHg) O2 Sat by Pulse 94 97 Oximetry 07/25/17 07/25/17 07/25/17 04:23 07:41 07:46 Temperature 98.6 F Pulse Rate 98 Respiratory 18 18 16 Rate Blood Pressure 116/57 (mmHg) O2 Sat by Pulse 96 Oximetry 07/25/17 07/25/17 07/25/17 08:00 08:26 11:09 Temperature 99.2 F Pulse Rate 106 Respiratory 18 20 16 Rate Blood Pressure 126/61 (mmHg) O2 Sat by Pulse 96 93 Oximetry 07/25/17 07/25/17 07/25/17 11:10 13:16 13:23 Temperature Pulse Rate 116 Respiratory 18 18 16 Rate Blood Pressure (mmHg) O2 Sat by Pulse 96 Oximetry Oxygen Devices in Use Now: None Appearance: NAD, sitting up in a chair Respiratory: Symmetrical Chest Expansion and Respiratory Effort, Clear to Auscultation Cardiovascular: NL Sounds; No Murmurs; No JVD, RRR Abdominal: NL Sounds; No Tenderness; No Distention Skin: - - Dressing to right hip clean, dry and intact Neurological: Alert and Oriented x 3, NL Muscle Strength and Tone Lines/Tubes/Other Access: Clean, Dry and Intact Peripheral IV - site benign Nutrition: Taking PO's Result Diagrams: 07/25/17 05:12 07/24/17 04:49 Assess/Plan/Problems-Billing Assessment: Ms. Riggins is a 67 yo female with PMH significant for asthma, anxiety, DM, HTN, HLD and arthritis who presented to the hospital for an elective right total hip arthroplasty with Mirtha Lobo on 07/23/17. - Patient Problems (1) Status post total hip replacement, right Code(s): Z96.641 - PRESENCE OF RIGHT ARTIFICIAL HIP JOINT SNOMED Code(s): 866093941118 Comment: - POD #2, management per Orthopedics - HH stable, continue to trend - Continue pain management, OT/PT and bowel regimen (2) Asthma Code(s): J45.909 - UNSPECIFIED ASTHMA, UNCOMPLICATED SNOMED Code(s): 573657274 Comment: - Continue albuterol PRN and IS (3) Anxiety Code(s): F41.9 - ANXIETY DISORDER, UNSPECIFIED SNOMED Code(s): 67339617 Comment: - Supportive Care (4) Diabetes Code(s): E11.9 - TYPE 2 DIABETES MELLITUS WITHOUT COMPLICATIONS SNOMED Code(s) : 57708734 Comment: - Glucose 150-240's - Glucose checks AC and HS - Continue Lispro SS and Lantus (5) HTN (hypertension) Code(s): I10 - ESSENTIAL (PRIMARY) HYPERTENSION SNOMED Code(s): 73881343 Comment: - SBP 110-130's - Resume Lisinopril in AM if BP allows (6) HLD (hyperlipidemia) Code(s): E78.5 - HYPERLIPIDEMIA, UNSPECIFIED SNOMED Code(s): 43665272 Comment: - Continue statin (7) DVT prophylaxis Code(s): GKV3984 - SNOMED Code(s): 714657444 Comment: - SQ Heparin bridge to Warfarin per Ortho (8) Full code status Code(s): Z78.9 - OTHER SPECIFIED HEALTH STATUS SNOMED Code(s): 149402683 Status and Disposition: Inpatient. Disposition per Orthopedics. Thank you for this consult, we will continue to follow along.
[2017-07-25] MEDS: Atorvastatin* 20 MG TAB PO SCH (16:49)
[2017-07-25] MEDS ORDERED: Warfarin TAB(*) 5 MG PO ONE (17:00)
[2017-07-25] MEDS ORDERED: Insulin GLARGINE(*) 1 UNITS UNIT SUBCUT SCH (21:00)
[2017-07-25] MEDS: Montelukast Sodium TAB* 10 MG PO SCH (22:08)
[2017-07-25] MEDS: Cetirizine* 10 MG TAB PO SCH (22:08)
[2017-07-26] MEDS: oxyCODONE TAB* 5 MG TAB PO PRN ×3 (03:35→19:41)
[2017-07-26 05:29] LABS: Hematocrit 32 % (35-47)
[2017-07-26] MEDS ORDERED: Scopolamine PATCH Remove* 1 NOTE MISC PATCH OFF ONE (06:00)
--- NOTE | 2017-07-26 08:30 | PN ---
Progress Note - Progress Note Date of Service: 07/26/17 SOAP: Subjective: No complaints. Objective: NAD Comfortable-appearing RLE: - Inc c/d/i - NVID Selected Entries 07/26/17 04:02 Temperature 97.4 F Pulse Rate 83 Respiratory 18 Rate Blood Pressure 129/65 (mmHg) O2 Sat by Pulse 91 Oximetry Selected Entries 07/26/17 04:02 Temperature 97.4 F Pulse Rate 83 Respiratory 18 Rate Blood Pressure 129/65 (mmHg) O2 Sat by Pulse 91 Oximetry Laboratory Tests 07/25/17 07/26/17 07/26/17 05:12 05:01 05:01 Hgb 11.2 L 11.0 L Hct 33 L 32 L INR (Anticoag Therapy) 1.37 H Assessment: POD 3 conversion of R hip hemiarthroplasty to CHARLIE Plan: - PT, OOB, WBAT - Heparin bridge and Coumadin anticoagulation - [facility] - Pain control
--- NOTE | 2017-07-26 08:40 | PN ---
Subjective Date of Service: 07/26/17 Interval History: Patient seen and examined at bedside. Denies fever, chills, shortness of breath , chest discomfort, N/V/D. Pt states that her pain is controlled. Family History: Unchanged from Admission Social History: Unchanged from Admission Past Medical History: Unchanged from Admission Objective Active Medications: Acetaminophen (Tylenol Tab*) 650 mg PO Q4H PRN Reason: pain, fever Albuterol (Ventolin 2.5 Mg/3 Ml Neb.Melanie*) 2.5 mg INH Q2H PRN Reason: SOB/ WHEEZING Atorvastatin Calcium (Lipitor*) 20 mg PO 1700 MIGNON Bisacodyl (Dulcolax Supp*) 10 mg [place] DAILY PRN Reason: constipation Cetirizine HCl (Zyrtec*) 10 mg PO BEDTIME MIGNON Cyclobenzaprine HCl (Flexeril Tab*) 10 mg PO QPM PRN Reason: muscle spasms Dextrose (D50w Syringe 50 Ml*) 12.5 gm IV PUSH .FOR FS < 60 - SS PRN Reason: FS < 60 Docusate Sodium (Colace Cap*) 100 mg PO BID MIGNON Heparin Sodium (Porcine) (Heparin Vial(*)) 5,000 units SUBCUT Q12HR MIGNON Lactated Ringer's (Lactated Ringers 1000 Ml Bag*) 1,000 mls @ 125 mls/hr IV PER RATE MIGNON Insulin Glargine (Lantus(*)) 30 units SUBCUT Q24H MIGNON Insulin Human Lispro (Humalog*) 0 units SUBCUT AC MIGNON Lactulose (Lactulose*) 30 ml PO BID PRN Reason: CONSTIPATION Magnesium Hydroxide (Milk Of Magnelda Liq*) 30 ml PO BID MIGNON Mometasone Furoate/Formoterol Fumar (Dulera 200/5 Mdi*) 2 puff INH BID MIGNON Montelukast Sodium (Singulair Tab*) 10 mg PO BEDTIME MIGNON Morphine Sulfate (Morphine Inj (Syringe)*) 2 mg IV Q2H PRN Reason: PAIN - BREAKTHROUGH Multivitamins (Theragran Tab*) 1 tab PO DAILY [facility] Non-Formulary Medication (Azelastine Hcl [Azelastine Hcl]) 137 mcg NA QAM MIGNON Ondansetron HCl (Zofran Inj*) 4 mg IV Q6H PRN Reason: nausea Ondansetron HCl (Zofran Tab*) 4 mg PO Q6H PRN Reason: NAUSEA Oxycodone HCl (Roxycodone Tab*) 5 mg PO Q4H PRN Reason: PAIN - MILD TO MODERATE Oxycodone HCl (Roxycodone Tab*) 10 mg PO Q4H PRN Reason: PAIN - MODERATE TO SEVERE Pharmacy Profile Note (Coumadin Daily Reminder*) 1 note FOLLOW UP 1700 MIGNON Polyethylene Glycol/Electrolytes (Miralax*) 17 gm PO DAILY PRN Reason: Constipation Vital Signs 07/25/17 07/25/17 07/25/17 11:09 11:10 13:16 Temperature 99.2 F Pulse Rate 106 Respiratory 16 18 18 Rate Blood Pressure 126/61 (mmHg) O2 Sat by Pulse 93 Oximetry 07/25/17 07/25/17 07/25/17 13:23 15:31 15:42 Temperature 99.3 F Pulse Rate 116 112 106 Respiratory 16 16 Rate Blood Pressure 130/67 (mmHg) O2 Sat by Pulse 96 94 Oximetry 07/25/17 07/25/17 07/25/17 15:46 19:42 19:55 Temperature 98.8 F Pulse Rate 104 Respiratory 18 16 16 Rate Blood Pressure 130/61 (mmHg) O2 Sat by Pulse 95 Oximetry 07/25/17 07/25/17 07/26/17 20:00 23:46 03:35 Temperature 98.9 F Pulse Rate 105 91 Respiratory 16 16 16 Rate Blood Pressure 118/63 (mmHg) O2 Sat by Pulse 95 96 Oximetry 07/26/17 07/26/17 04:02 05:37 Temperature 97.4 F Pulse Rate 83 Respiratory 18 16 Rate Blood Pressure 129/65 (mmHg) O2 Sat by Pulse 91 Oximetry Oxygen Devices in Use Now: None Appearance: NAD, sitting up in a chair Respiratory: Symmetrical Chest Expansion and Respiratory Effort, Clear to Auscultation Cardiovascular: NL Sounds; No Murmurs; No JVD, RRR Abdominal: NL Sounds; No Tenderness; No Distention Skin: - - Dressing to right hip Neurological: Alert and Oriented x 3, NL Muscle Strength and Tone Lines/Tubes/Other Access: Clean, Dry and Intact Peripheral IV - site benign Nutrition: Taking PO's Result Diagrams: 07/26/17 05:01 07/24/17 04:49 Assess/Plan/Problems-Billing Assessment: Ms. Riggins is a 67 yo female with PMH significant for asthma, anxiety, DM, HTN, HLD and arthritis who presented to the hospital for an elective right total hip arthroplasty with Mirtha Lobo on 07/23/17. - Patient Problems (1) Status post total hip replacement, right Code(s): Z96.641 - PRESENCE OF RIGHT ARTIFICIAL HIP JOINT SNOMED Code(s): 578844429747 Comment: - POD #3, management per Orthopedics - HH stable, continue to trend - Continue pain management, OT/PT and bowel regimen (2) Asthma Code(s): J45.909 - UNSPECIFIED ASTHMA, UNCOMPLICATED SNOMED Code(s): 033735479 Comment: - Continue albuterol PRN and IS (3) Anxiety Code(s): F41.9 - ANXIETY DISORDER, UNSPECIFIED SNOMED Code(s): 42972267 Comment: - Supportive Care (4) Diabetes Code(s): E11.9 - TYPE 2 DIABETES MELLITUS WITHOUT COMPLICATIONS SNOMED Code(s) : 42032857 Comment: - Glucose 170-240's - Glucose checks AC and HS - Continue Lispro SS and Lantus (5) HTN (hypertension) Code(s): I10 - ESSENTIAL (PRIMARY) HYPERTENSION SNOMED Code(s): 54386885 Comment: - SBP 110-130's - Resume Lisinopril (6) HLD (hyperlipidemia) Code(s): E78.5 - HYPERLIPIDEMIA, UNSPECIFIED SNOMED Code(s): 70243264 Comment: - Continue statin (7) DVT prophylaxis Code(s): [id number] - SNOMED Code(s): 898383407 Comment: - SQ Heparin bridge to Warfarin per Ortho (8) Full code status Code(s): Z78.9 - OTHER SPECIFIED HEALTH STATUS SNOMED Code(s): 727220296 Status and Disposition: Inpatient. Disposition per Orthopedics. Plan for possible discharge to Rehab tomorrow. Thank you for this consult, we will sign off at this time. Please call with any questions.
[2017-07-26] MEDS: Insulin LISPRO* 1 UNITS UNIT SUBCUT SCH ×3 (08:59→16:59)
[2017-07-26] MEDS: Lisinopril TAB* 5 MG PO SCH (08:59)
[2017-07-26] MEDS: Vitamin THERAPEUTIC TAB PO SCH (08:59)
[2017-07-26] MEDS: Docusate CAP* 100 MG PO SCH ×2 (08:59→19:41)
[2017-07-26] MEDS: Heparin VIAL(*) 5000 UNITS/ML VIAL (FIVE THOUSAND) SUBCUT SCH ×2 (09:05→21:48)
[2017-07-26] MEDS: Magnesium Hydroxide LIQ* 30 ML UDC PO SCH ×2 (09:06→19:37)
[2017-07-26] MEDS: AZELASTINE HCL 137 MCG SCH (09:06)
[2017-07-26] MEDS: Mometasone/Formoter 200/5 MDI INH SCH ×2 (09:08→20:40)
[2017-07-26] MEDS: Atorvastatin* 20 MG TAB PO SCH (16:59)
[2017-07-26] MEDS ORDERED: Insulin GLARGINE(*) 1 UNITS UNIT SUBCUT SCH (21:00)
[2017-07-26] MEDS: Montelukast Sodium TAB* 10 MG PO SCH (21:47)
[2017-07-26] MEDS: Cetirizine* 10 MG TAB PO SCH (21:47)
[2017-07-27 05:33] LABS: Hematocrit 32 % (35-47)
[2017-07-27] MEDS: Docusate CAP* 100 MG PO SCH (08:10)
[2017-07-27] MEDS: Mometasone/Formoter 200/5 MDI INH SCH (08:10)
[2017-07-27] MEDS: Vitamin THERAPEUTIC TAB PO SCH (08:10)
[2017-07-27] MEDS: Lisinopril TAB* 5 MG PO SCH (08:10)
[2017-07-27] MEDS: Heparin VIAL(*) 5000 UNITS/ML VIAL (FIVE THOUSAND) SUBCUT SCH (08:11)
[2017-07-27] MEDS: Insulin LISPRO* 1 UNITS UNIT SUBCUT SCH ×2 (08:11→12:47)
[2017-07-27] MEDS: oxyCODONE TAB* 5 MG TAB PO PRN ×2 (08:12→12:52)
[2017-07-27] MEDS: Magnesium Hydroxide LIQ* 30 ML UDC PO SCH (09:18)
[2017-07-27] MEDS: AZELASTINE HCL 137 MCG SCH (09:18)
[2017-07-27] MEDS ORDERED: Magnesium Hydroxide LIQ* 30 ML UDC PO PRN (10:00)
--- NOTE | 2017-07-27 11:38 | DS ---
Discharge Summary Date of Admission: 07/23/2107 Date of Discharge: 07/27/2017 Provider: Dr Vika Lobo Principle Diagnosis: Right hemiarthroplasty with acetabular erosion Secondary Diagnoses: See H&P Principle procedure: Conversion of right hemiarthroplasty to total right hip arthroplasty Consultations: Medicine, physical therapy, occupational therapy HPI: Refer to H&P Hospital Course: The patient was admitted on 07/23/2017 and underwent conversion of a right hemiarthroplasty to a total right hip arthroplasty. She tolerated the procedure well and there were no complications. The patient had spinal anesthesia and was quite comfortable in the immediate postoperative period. On POD#1 the patients H&H was 11/32. Dressing was CDI, she was neurovascularly intact with good sensation distal to the right hip. She could demonstrate dorsi and plantar flexion with good strength. Participation in physical and occupational therapy was begun. Pain management was achieved with PO percocet with good effect. On POD#2 the urinary catheter was discontinued and the patient was able to void spontaneously. The dressing was changed and the wound was found to be benign with minimal drainage and erythema. Vital signs were stable and the patient was afebrile. POD#3 bowel and bladder had normalized and the patient was cleared by physical therapy for safe discharge to [facility]. She will continue with the exercises learned with physical therapy and arrangements were made for physical therapy at [facility] as well. At discharge the H&H was 11/32, vital signs were stable and the INR value was 1.29. The patient was discharged with a prescription for Coumadin 2 mg. The INR will be monitored on Mondays and by [facility] and the Coumadin dose adjusted accordingly by Dr. Lobo's office. The patient will resume the home medications as indicated in the discharge instructions. Karoline and/or sutures will be removed in 10-14 days. Medications at discharge: Aspirin 81mg PO daily Advair Discus 500/50 mcg one puff BID Atorvastatin 20mg Po daily Acetaminophen (Tylenol Tab*) 650 mg PO Q4H PRN PRN Reason: pain, fever Albuterol (Ventolin 2.5 Mg/3 Ml Neb.Melanie*) 2.5 mg INH Q2H PRN PRN Reason: SOB/WHEEZING Cyclobenzaprine HCl (Flexeril Tab*) 10 mg PO QPM PRN PRN Reason: muscle spasms Docusate Sodium (Colace Cap*) 100 mg PO BID [facility] Fluticasone 50 mcg 2 spray into each nostril as needed Insulin Glargine (Lantus(*)) 40 units SUBCUT Q24H [facility] QHS Lisinopril (Prinivil Tab*) 5 mg PO DAILY [facility] Montelukast Sodium (Singulair Tab*) 10 mg PO BEDTIME [facility] Azelastine Hcl [Azelastine Hcl] 137 mcg spray nasal QAM [facility] Oxycodone HCl (Roxycodone Tab*) 5 mg - 10mg PO Q4H PRN PRN Reason: PAIN - MILD TO MODERATE Levocetirizine 5mg PO daily Glimepiride 2mg PO daily Nystatin Powder to groin creases daily to twice daily Coumadin 2mg PO daily at 5PM 07/27- 8mg 07/28- 8mg 07/29- 6mg INR draw 07/30 Condition: Stable Disposition: [facility] with PT and PT/INR draws on Sunday and Follow up: Patient will follow up with Dr. Lobo in 3-4 weeks at [facility] Orthopedics Vital Signs Temp 98.0 F 07/27/17 07:45 Pulse 103 07/27/17 07:45 Resp 16 07/27/17 10:36 BP 121/64 07/27/17 07:45 Pulse Ox 98 07/27/17 07:45 Intake & Output 07/26/17 07/27/17 07/27/17 18:59 06:59 18:59 Intake Total 810 300 240 Output Total 1750 400 200 Balance -940 -100 40 Intake: Oral 810 300 240 Output: Urine 1750 400 200 Other: Estimated Void Medium # Bowel Movements 1 Estimated Stool Amount Large # Voids 1 Laboratory Results - last 24 hr 07/26/17 07/26/17 07/27/17 11:50 16:24 05:06 Hgb 11.0 L Hct 32 L INR (Anticoag Therapy) POC Glucose (mg/dL) 203 H 167 H 07/27/17 07/27/17 07/27/17 05:06 07:23 11:14 Hgb Hct INR (Anticoag Therapy) 1.29 H POC Glucose (mg/dL) 168 H 251 H
[2017-07-27 11:52] VITALS: BP 129/51
--- NOTE | 2017-07-27 11:52 | PN ---
Progress Note - Progress Note Date of Service: 07/27/17 SOAP: Subjective: [] Objective: [] Assessment: [] Plan: []
== END 2017-07-27 13:45 | DRG 301 ==
LOC: AA 06:11 → EDSTATUS 08:00 → SSU 12:04
PROVIDERS: ADMIT Orthopaedic Surgery; ATTEND Orthopaedic Surgery
PROC: 0SP90JZ Removal of Synthetic Substitute from Right Hip Joint, Open Approach (ICD-10-PCS; 2017-07-23)
PROC: 0SR90JZ Replacement of Right Hip Joint with Synthetic Substitute, Open Approach (ICD-10-PCS; principal; 2017-07-23 07:30)
DX: M16.51 Unilateral post-traumatic osteoarthritis, right hip (principal); E11.8 Type 2 diabetes mellitus with unspecified complications; J45.909 Unspecified asthma, uncomplicated; R05 Cough; I25.10 Atherosclerotic heart disease of native coronary artery without angina pectoris; I10 Essential (primary) hypertension; F41.9 Anxiety disorder, unspecified; Z88.0 Allergy status to penicillin; Z88.5 Allergy status to narcotic agent; Z88.1 Allergy status to other antibiotic agents; Z87.440 Personal history of urinary (tract) infections; Z88.8 Allergy status to other drugs, medicaments and biological substances; Z83.3 Family history of diabetes mellitus; Z80.0 Family history of malignant neoplasm of digestive organs; Z79.82 Long term (current) use of aspirin; Z79.4 Long term (current) use of insulin; Z79.01 Long term (current) use of anticoagulants
CPT/HCPCS: 36415; 62323; 71010; 72170; 80048; 85014; 85018; 85025; 85610; 86850; 86900; 86901; 88300; 94640; 94760; A9270-GY; C1713; C1776; J1644; J2250; J2405; J2704; J3010

== ENCOUNTER 2017-10-28 18:40 | Emergency (ER) | payer BC, MEDICARE ==
--- NOTE | 2017-10-28 21:55 | ED ---
Abdominal Pain/Female - HPI Summary HPI Summary: 67-year-old female presents without having a bowel movement for the past couple days. She did she has tried MiraLAX but has not been helping. She admits to intermittent generalized abdominal pain. She denies any nausea or vomiting. She has also tried Zantac for her pain. She is been following up with her primary. She denies any dysuria. She denies any flank pain. She states her abdomen seems mildly distended than normal. She does not have a history of constipation. she states 3 days ago had a small BM. - History of Current Complaint Chief Complaint: EDAbdPain Stated Complaint: NO BM Time Seen by Provider: 10/28/17 21:38 Pain Intensity: 4 Allergies/Adverse Reactions: Allergies Allergy/AdvReac Type Severity Reaction Status Date / Time MS Codeine [Codeine] Allergy Severe Unknown Verified 07/23/17 06:23 Reaction Details MS Penicillins [Penicillins] Allergy Severe Anaphylatic Verified 07/23/17 06:23 Shock MS Sulfa Drugs [Sulfa Drugs] Allergy Intermediate Hives Verified 07/23/17 06:23 MS Diphenhydramine Allergy Unknown Verified 07/23/17 06:23 [From Benadryl] Reaction Details MS Garlic [Garlic] Allergy Unknown Verified 07/23/17 06:23 Reaction Details MS Onion [Onion] Allergy Unknown Verified 07/23/17 06:23 Reaction Details MS Sassafras Oil Allergy Unknown Verified 07/23/17 06:23 [Sassafras Oil] Reaction Details MS Ciprofloxacin AdvReac Severe Diarrhea Verified 07/23/17 06:23 [Ciprofloxacin] MS Pioglitazone [From Actos] AdvReac Diarrhea Verified 07/23/17 06:23 sleeping pills Allergy Hallucinati Uncoded 07/04/17 14:36 ons PMH/Surg Hx/FS Hx/Imm Hx Endocrine/Hematology History: Reports: Hx Diabetes Denies: Hx Thyroid Disease Cardiovascular History: Reports: Hx Hypertension Denies: Other Cardiovascular Problems/Disorders Respiratory History: Reports: Hx Asthma, Hx Seasonal Allergies - MULTIPLE FOOD/ DRUG ALLERGIES Denies: Hx Chronic Obstructive Pulmonary Disease (COPD), Other Respiratory Problems/Disorders GI History: Denies: Hx Ulcer History: Reports: Hx Kidney Infection Denies: Other Problems/Disorders Musculoskeletal History: Reports: Hx Arthritis - fingers, left foot, right leg, Hx Tendonitis - emilie shoulders Sensory History: Reports: Hx Contacts or Glasses - glasses Denies: Hx Hearing Aid Opthamlomology History: Reports: Hx Contacts or Glasses - glasses Neurological History: Reports: Other Neuro Impairments/Disorders - passed out three times in her life - Surgical History Surgery Procedure, Year, and Place: c section. partical hip replacement. WISDOM TEETH EXTRACTION Hx Anesthesia Reactions: Yes - shaking chills Infectious Disease History: No Infectious Disease History: Denies: Hx Clostridium Difficile, Hx Hepatitis, Hx Human Immunodeficiency Virus (HIV), Hx of Known/Suspected MRSA, Hx Shingles, Hx Tuberculosis, Hx Known/ Suspected VRE, Hx Known/Suspected VRSA, History Other Infectious Disease, Traveled Outside the [place] in Last 30 Days - Family History Known Family History: Positive: Cardiac Disease, Hypertension, Diabetes, Other - LIVER CANCER - Social History Alcohol Use: Occasionally Alcohol Amount: new years Substance Use Type: Reports: None Smoking Status (MU): Never Smoked Tobacco Have You Smoked in the Last Year: No Review of Systems Negative: Fever Negative: Chest Pain Negative: Shortness Of Breath Positive: Abdominal Pain. Negative: Vomiting, Diarrhea, Nausea All Other Systems Reviewed And Are Negative: Yes Physical Exam Triage Information Reviewed: Yes Vital Signs On Initial Exam: Initial Vitals Temp Pulse Resp BP Pulse Ox 98.2 F 98 14 143/75 97 10/28/17 18:55 10/28/17 18:55 10/28/17 18:55 10/28/17 18:55 10/28/17 18:55 Vital Signs Reviewed: Yes Appearance: Positive: Well-Appearing Skin: Positive: Warm, Dry Head/Face: Positive: Normal Head/Face Inspection Eyes: Positive: Normal, Conjunctiva Clear Respiratory/Lung Sounds: Positive: Clear to Auscultation, Breath Sounds Present Cardiovascular: Positive: Normal, RRR Abdomen Description: Positive: Soft, Other: - mild diffuse abd pain, no rebound Bowel Sounds: Positive: Present Musculoskeletal: Positive: Normal Neurological: Positive: Normal Psychiatric: Positive: Normal Diagnostics - Vital Signs Vital Signs Temp Pulse Resp BP Pulse Ox 10/28/17 18:55 98.2 F 98 14 143/75 97 - Laboratory Lab Statement: Any lab studies that have been ordered have been reviewed, and results considered in the medical decision making process. - Radiology abd Xray Interpretation: Positive (See Comments) - IMPRESSION: Stool present throughout the colon. No free air or obstructive pattern is noted. Radiology Interpretation Completed By: Radiologist Abdominal Pain Fem Course/Dx - Course Course Of Treatment: 67-year-old female presents without having a bowel movement for the past couple days. She did she has tried MiraLAX but has not been helping. She admits to intermittent generalized abdominal pain. She denies any nausea or vomiting. She has also tried Zantac for her pain. She is been following up with her primary. She denies any dysuria. She denies any flank pain. She states her abdomen seems mildly distended than normal. She does not have a history of constipation. on exam mild diffuse tenderness, no rebound. xray shows stool throughout so will try mag citrate. will hae continue colace. patient understand and agrees with plan. - Diagnoses Differential Diagnosis: Positive: Bowel Obstruction, Constipation, Urinary Tract Infection Provider Diagnoses: Abdominal pain Discharge - Discharge Plan Condition: Good Disposition: HOME Prescriptions: Docusate CAP* [Colace Cap*] 100 mg PO DAILY PRN #10 cap PRN Reason: Constipation Sodium Phosphate ADULT ENEMA* [Fleet Enema*] 1 enema IN DAILY PRN #1 btl PRN Reason: Constipation Patient Education Materials: Constipation (ED) Forms: *Work Release Referrals: Sandee Louis MD [Primary Care Provider] - Additional Instructions: Take colace once a day for constipation as needed Use enema as needed once a day for constipation Increase fiber Follow up with primary within 5 days Return to ED if develop any new or worsening symptoms
[2017-10-28] MEDS ORDERED: Magnesium CITRATE* 300 ML BTL PO ONE (22:00)
--- NOTE | 2017-10-28 22:10 | RAD ---
Indication: No bowel movement. Flat plate of the abdomen demonstrates no free air. There is stool throughout the colon including the rectum consistent with fecal stasis. No dilated loops of small bowel are noted. No free air is noted. IMPRESSION: Stool present throughout the colon. No free air or obstructive pattern is noted.
[2017-10-28 22:14] VITALS: BP 146/76
== END 2017-10-28 22:15 | disposition home or self-care (01) ==
LOC: ED 18:40
DX: R10.9 Unspecified abdominal pain (principal); Z88.3 Allergy status to other anti-infective agents; Z88.5 Allergy status to narcotic agent; Z88.0 Allergy status to penicillin; Z88.8 Allergy status to other drugs, medicaments and biological substances; Z88.2 Allergy status to sulfonamides
CPT/HCPCS: 74019; 99282; A9270-GY

== ENCOUNTER 2018-07-04 07:18 | Emergency (ER) | payer BC, MEDICARE ==
--- OUTSIDE RECORDS SUMMARY | 2018-07-04 07:25 | XMS REPORT | Continuity of Care Document ---
:1950 External Reference #:[id number] Author Name Indio Toribio MD Address [address] [place] [address] Care Team Providers Name Role Phone Sandee Louis MD Care Team Information Nanoscience Technician Unavailable Sandee Louis MD Primary Care Physician Unavailable Payers Type Date Identification Numbers Payment Provider Subscriber Policy Number: [id number] [facility] [employer] Gwen Riggins PayID: [id number] [address] [address] [place] [address] Advance Directives Description No Information Available Problems Date Description Provider Status Onset: 02/16/2016 Acute bronchitis Indio Toribio MD Active Onset: 02/16/2016 Moderate persistent asthma with Indio Toribio MD Active (acute) exacerbation Onset: 04/19/2016 Eustachian tube disorder Indio Toribio MD Active Onset: 02/13/2017 Exacerbation of moderate Indio Toribio MD Active persistent asthma Onset: 02/28/2017 Uncomplicated moderate Melanie Snow, RPA-C Active persistent asthma Onset: 02/27/2018 Allergic rhinitis due to pollen Indio Toribio MD Active Onset: 02/27/2018 Allergic rhinitis Indio Toribio MD Active Family History Date Family Member(s) Problem(s) Comments General Unknown Social History Type Date Description Comments Sex Unknown Tobacco Use Start: Unknown Patient has never smoked Smoking Status Reviewed: 02/27/18 Patient has never smoked Allergies, Adverse Reactions, Alerts Date Description Reaction Status Severity Comments 12/03/2012 Benadryl Active 12/03/2012 Penicillins Active 12/03/2012 Actos Active 12/03/2012 Acetaminophen Active 02/16/2016 Codeine Active 02/16/2016 Sulfa Antibiotics Active Medications Medication Date Status Form Strength Qnty SIG Indications Ordering Provider Prednisone 02/27 Active Tablets 20mg 10tab take one J30.89 s tablet Evette Toribio MD twice daily x 5 days Fluticasone 10/04 Active Suspension 50mcg/Act 1unit spray 2 Propionate s sprays in Evette Toribio MD each nostril bid Singulair 02/22 Active Tablets 10mg 30tab 10mg by s mouth Evette Toribio MD daily at bedtime Levocetirizine 02/22 Active Tablets 5mg 30tab take 1 Dihydrochloride s tablet (5 Evette Toribio MD mg) by oral route once daily in the evening for 99 days Ventolin HFA 02/15 Active Aerosol 108(90Bas 8gm inhale 2 e) puffs by Evette Toribio MD mcg/Act inhalatio n route every 4 hours as needed for 99 days Advair Diskus 12/28 Active Aerosol 500-50mcg 60uni inhale 1 /Dose ts puff by Evette Toribio MD mouth every 12 hours Lisinopril Active Tablets 2.5mg 1 by Unknown /0000 mouth q d Lantus 42 Units Active Solution 100Unit/M 42 units Unknown /0000 L hs Albuterol Active Nebulizer 0.63mg/3M use in Unknown Sulfate /0000 L nebulizer as directed Atorvastatin Active Tablets 20mg 1 by Unknown Calcium /0000 mouth every day Aspirin 81 Low Active Chewtabs 81mg Unknown Dose /0000 Glimepiride Active Tablets 2mg 2 by Unknown /0000 mouth twice a day Azelastine HCL Active Solution 137mcg/Sp one spray (Nasal) /0000 ray each Evette Toribio MD nostril twice daily Prednisone 01/25 Hx Tablets 20mg 10tab take one Marilyn s tablet VALERIA Gutierrez - twice 02/01 daily x days Doxycycline 11/26 Hx Capsules 100mg 20cap one J20.9 Marilyn Hyclate s capsule VALERIA Gutierrez - by mouth 01/25 daily x 10 days. Prednisone 11/26 Hx TBPK 10mg (21) 21uni take 40 J20.9 Marilyn ts mg by VALERIA Gutierrez - mouth 01/25 twice a day for 1 days, then 30 mg by mouth twice a day, then 20mg twice a day, then 10 mg twice a day Zithromax Z-Jono 02/28 Hx Tablets 250mg 6tabs Take as J45.40 opher /2016 directed Evette Toribio MD - 11/26 Xopenex 02/28 Hx Nebulizer 1.25mg/3M 360un Inhale J45.40 /2016 L its one vial Evette Toribio MD - in 11/26 nebulizer every 6 to 8 hours as needed Prednisone 02/28 Hx Tablets 10mg 30tab Take 3 J45.40 s tablets Evette Toribio MD - by mouth 11/26 twice a day for 5 days. Take with food. Prednisone 02/13 Hx Tablets 5mg 30tab 6 tablets J45.41 s (30 mg) Evette Toribio MD - by mouth 02/27 every day x 5 days Prednisone 04/19 Hx Tablets 5mg 18tab 6 tablets H69.90 s (30 mg) Evette Toribio MD - by mouth 08/04 every x 3 days Avelox 04/19 Hx Tablets 400mg 10tab take 1 H69.90 s tab by Evette Toribio MD - mouth 08/04 daily 10 days Albuterol 02/15 Hx Nebulizer (2.5mg/3M 150ml Inhale L) 0.083% one vial Evette Toribio MD - Q4 hours 02/28 as needed /2016 Biaxin 02/15 Hx Tablets 500mg 28tab Take one J45.41 s tablet by Evette Toribio MD - mouth Q12 02/22 hours x1 days. Prednisone 02/15 Hx Tablets 10mg 24tab Take 3 J45.41 s tablets Evette Toribio MD - by mouth 02/22 twice a day x4 days. Take with food. Lantus 00 Hx Solution 100Unit/M 20 units Unknown /0000 L 1x a day - 11/26 Cyclobenzaprine Hx Tablets 10mg one by Unknown HCL /0000 mouth q - Am a day 11/26 as needed spasm Naproxen Hx Tablets 500mg 1 by Unknown /0000 mouth bid - 11/26 Amaryl 00 Hx Tablets 2mg Unknown /0000 - 01/25 Immunizations Description No Information Available Vital Signs Date Vital Result Comment 02/27/2018 8:38am BP Systolic 132 mmHg BP Diastolic 66 mmHg Height 63 inches 5'3" Weight 198.00 lb BMI (Body Mass Index) 35.1 kg/m2 Heart Rate 90 /min Respiratory Rate 16 /min O2 % BldC Oximetry 96 % 01/25/2018 11:43am BP Systolic 110 mmHg BP Diastolic 75 mmHg Height 63 inches 5'3" Weight 199.00 lb BMI (Body Mass Index) 35.2 kg/m2 Heart Rate 101 /min Respiratory Rate 20 /min Body Temperature 97.9 F O2 % BldC Oximetry 96 % 11/26/2017 2:21pm BP Systolic 146 mmHg BP Diastolic 66 mmHg Height 63 inches 5'3" Heart Rate 114 /min O2 % BldC Oximetry 94 % 02/28/2017 1:02pm Height 63 inches 5'3" Weight 187.00 lb BMI (Body Mass Index) 33.1 kg/m2 Heart Rate 123 /min Respiratory Rate 18 /min Body Temperature 86.7 F O2 % BldC Oximetry 96 % 02/13/2017 4:24pm BP Systolic 142 mmHg BP Diastolic 84 mmHg Height 63 inches 5'3" Weight 187.00 lb BMI (Body Mass Index) 33.1 kg/m2 Heart Rate 124 /min Respiratory Rate 16 /min O2 % BldC Oximetry 97 % 04/19/2016 4:38pm BP Systolic 112 mmHg BP Diastolic 64 mmHg Height 63 inches 5'3" Weight 175.00 lb BMI (Body Mass Index) 31.0 kg/m2 Heart Rate 96 /min Respiratory Rate 14 /min Body Temperature 98.8 F O2 % BldC Oximetry 97 % 02/16/2016 4:29pm BP Systolic 152 mmHg BP Diastolic 86 mmHg Height 63 inches 5'3" Weight 180.00 lb BMI (Body Mass Index) 31.9 kg/m2 Heart Rate 86 /min Respiratory Rate 16 /min Body Temperature 98.6 F O2 % BldC Oximetry 97 % Results Test Date Facility Test Result H/L Range Note Order 02/28/2017 [facility] Nitric Oxide <pending> Procedures Date Code Description Status 02/27/2018 76063 Nitric Oxide Gas Determination Completed 02/27/2018 77884 Bronchodilation Responsiveness Spirometry Pre/Post Completed Bronchodil Adm 02/28/2017 47471 Nitric Oxide Gas Determination Completed 02/13/2017 02310 Nitric Oxide Gas Determination Completed Encounters Type Date Location Provider Dx Diagnosis Office Visit 02/27/2018 [place] Indio Toribio J30.1 Allergic rhinitis 8:15a MD due to pollen J30.89 Other allergic rhinitis J45.40 Moderate persistent asthma, uncomplicated Office Visit 01/25/2018 11:30a Kelton Gutierrez NP H69.90 Unspecified Eustachian tube disorder, unspecified ear Office Visit 11/26/2017 2:30p [place] Marilyn Gutierrez NP J20.9 Acute bronchitis, unspecified J45.40 Moderate persistent asthma, uncomplicated Office Visit 02/28/2017 1:00p [place] Melanie Sandy45.40 Moderate persistent Fenstermacher, RPA-C asthma, uncomplicated Office Visit 02/13/2017 4:45p Lynngerardo Sandy45.41 Moderate persistent MD [facility] asthma with (acute) exacerbation Office Visit 04/19/2016 4:30p [place] Alas H69.90 Unspecified MD [facility] Eustachian tube disorder, unspecified ear Office Visit 02/16/2016 4:30p [place] Sandy45.41 Moderate persistent MD [facility] asthma with (acute) exacerbation J20.9 Acute bronchitis, unspecified Plan of Treatment Future Appointment(s):08/30/2018 8:15 am - Indio Toribio MD at [id number] - Indio Toribio MDJ30.1 Allergic rhinitis due to [id number] Other allergic rhinitisNew Medication:Prednisone 20 mg - take one tablet twice daily x 5 daysJ45.40 Moderate persistent asthma, uncomplicated
--- OUTSIDE RECORDS SUMMARY | 2018-07-04 07:25 | XMS REPORT | Continuity of Care Document ---
:1950 External Reference #:[id number] Author Name Indio Toribio MD Address [address] [place] [address] Care Team Providers Name Role Phone Sandee Louis MD Care Team Information Day Trader Unavailable Sandee Louis MD Primary Care Physician Unavailable Payers Type Date Identification Numbers Payment Provider Subscriber Policy Number: [id number] [facility] [employer] Gwen Riggins PayID: [id number] [address] [address] [place] [address] Advance Directives Description No Information Available Problems [...] J45.40 /2016 L its one vial Evette oTribio MD - in 11/26 nebulizer every 6 [...] <pending> Procedures Date Code Description Status 02/27/2018 95553 Nitric Oxide Gas Determination Completed 02/27/2018 34426 Bronchodilation Responsiveness Spirometry Pre/Post Completed Bronchodil Adm 02/28/2017 13050 Nitric Oxide Gas Determination Completed 02/13/2017 59675 Nitric Oxide Gas Determination Completed Encounters Type Date Location Provider Dx Diagnosis Office Visit 02/27/2018 [place] Indio Toribio J30.1 Allergic rhinitis 8:15a MD due to pollen J30.89 Other allergic rhinitis J45.40 Moderate persistent asthma, uncomplicated Office Visit 01/25/2018 11:30a Kelton Gutierrez NP H69.90 Unspecified Eustachian tube disorder, unspecified ear Office Visit 11/26/2017 2:30p [place] Marilyn Gutierrez NP J20.9 Acute bronchitis, unspecified J45.40 Moderate persistent asthma, uncomplicated Office Visit 02/28/2017 1:00p [place] Melanie Sandy45.40 Moderate persistent Fenstermacher, RPA-C asthma, uncomplicated Office Visit 02/13/2017 4:45p Gentrygerardo Sandy45.41 Moderate persistent MD [facility] asthma with (acute) exacerbation Office Visit 04/19/2016 4:30p Brandonricardo Alas H69.90 Unspecified MD [facility] Eustachian tube disorder, unspecified ear Office Visit 02/16/2016 4:30p Brandonricardo Sandy45.41 Moderate persistent MD [facility] asthma with (acute) exacerbation J20.9 Acute bronchitis, unspecified Plan of Treatment Future Appointment(s):08/30/2018 8:15 am - Indio Toribio MD at [email or web address] - Indio Toribio MDJ30.1 Allergic rhinitis due to [id number] Other allergic rhinitisNew Medication:Prednisone 20 mg - take one tablet twice daily x 5 daysJ45.40 Moderate persistent asthma, uncomplicated
[2018-07-04 07:34] VITALS: BP 127/79
[2018-07-04] MEDS ORDERED: Ibuprofen TAB* 600 MG PO ONE (07:56)
--- NOTE | 2018-07-04 08:41 | UC ---
Shoulder Pain HPI - HPI Summary HPI Summary: 68 yo F c/o L shoulder pain that's been constant for 3 weeks. Denies hx of fall or injury. R handed. Denies reduced ROM, no numbness or weakness. Has not taken any medications for the pain. Is not improved by massage or exercises. PMH of DM and HTN but denies any CP or SOB. Has not yet seen her doctor or Orthopedist (hx of hip replacement) for this. medication reviewed. Family hx non- contributory - History of Current Complaint Chief Complaint: UCUpperExtremity Stated Complaint: SHOULDER PAIN Time Seen by Provider: 07/04/18 07:48 Pain Intensity: 10 - Allergies/Home Medications Allergies/Adverse Reactions: Allergies Allergy/AdvReac Type Severity Reaction Status Date / Time ciprofloxacin Allergy Severe Diarrhea Verified 07/04/18 07:50 codeine Allergy Severe Unknown Verified 07/04/18 07:46 Reaction Details Penicillins Allergy Severe Anaphylatic Verified 07/04/18 07:46 Shock Sulfa (Sulfonamide Allergy Intermediate Hives Verified 07/04/18 07:49 Antibiotics) diphenhydramine Allergy Unknown Verified 07/04/18 07:49 Reaction Details garlic Allergy Unknown Verified 07/04/18 07:49 Reaction Details onion Allergy Unknown Verified 07/04/18 07:49 Reaction Details pioglitazone [From Actos] Allergy Diarrhea Verified 07/04/18 07:50 sassafras oil Allergy Unknown Uncoded 07/04/18 07:50 Reaction Details sleeping pills Allergy Hallucinati Uncoded 07/04/17 14:36 ons Home Medications: Home Medications Aspirin [Adult Aspirin] 81 mg PO DAILY 07/04/18 [History Confirmed 07/04/18] Ibuprofen TAB* [Motrin TAB* 400 MG] 400 mg PO DAILY PRN 07/04/18 [History Confirmed 07/04/18] PMH/Surg Hx/FS Hx/Imm Hx - Surgical History Surgical History: Yes Surgery Procedure, Year, and Place: c section. partical hip replacement. WISDOM TEETH EXTRACTION - Family History Known Family History: Positive: Cardiac Disease, Hypertension, Diabetes, Other - LIVER CANCER - Social History Alcohol Use: Occasionally Alcohol Amount: new years Substance Use Type: None Smoking Status (MU): Never Smoked Tobacco Have You Smoked in the Last Year: No - Immunization History Most Recent Influenza Vaccination: 2013 Most Recent Tetanus Shot: UNSURE Most Recent Pneumonia Vaccination: 2017 Review of Systems Constitutional: Negative Respiratory: Negative Cardiovascular: Negative Musculoskeletal: Other: - see HPI Neurological: Negative All Other Systems Reviewed And Are Negative: Yes Physical Exam Triage Information Reviewed: Yes Appearance: Well-Appearing, Other: - appears mildly uncomfortable Vital Signs: Initial Vital Signs Temp 98.1 F 07/04/18 07:29 Pulse 87 07/04/18 07:29 Resp 20 07/04/18 07:29 BP 127/79 07/04/18 07:29 Pulse Ox 99 07/04/18 07:29 Vital Signs Reviewed: Yes Eyes: Positive: Conjunctiva Clear Respiratory: Positive: Lungs clear, Normal breath sounds, No respiratory distress Cardiovascular Exam: Normal Cardiovascular: Positive: RRR Abdomen Description: Negative: Distended Musculoskeletal Exam: Other - L should mildly TTP, no reduced ROM, negative empty can test, negative posterior lift-off test. LUE 2+ radial, normal sensation throughout Skin Exam: Normal Diagnostics - Radiology No standard instances Radiology Interpretation Completed By: Radiologist - EKG Cardiac Rhythm: Sinus: Normal Ectopy: None ST Segment: Normal EKG Comparison: No Significant Change Summary of EKG Findings: Q waves in inferior leads Shoulder Course/Dx - Course Course Of Treatment: XR, ibuprofen, EKG - Differential Dx/Diagnosis Differential Diagnosis/HQI/PQRI: Other - rotator cuff injury, calcific tendonitis, osteoarthritis, occult fracture Provider Diagnoses: calcific tendonitis Discharge - Sign-Out/Discharge Documenting (check all that apply): Patient Departure All imaging exams completed and their final reports reviewed: Yes - Discharge Plan Condition: Stable Disposition: HOME Patient Education Materials: Calcific Tendinitis (ED) Referrals: Sandee Louis MD [Primary Care Provider] - - Billing Disposition and Condition Condition: STABLE Disposition: Home
--- NOTE | 2018-07-04 08:49 | RAD ---
Indication: LEFT shoulder pain. Difficulty moving LEFT arm. Comparison: No relevant prior exams available on the [facility]. Technique: Internal rotation AP, external rotation Grashey, scapular Y, axillary views LEFT shoulder Report: Negative for fracture. Normal acromioclavicular and glenohumeral joint alignment. Mild osteophytosis at the acromioclavicular joint. Small inferior acromial bone spur. Mild glenohumeral joint osteophytosis. Negative for significant glenohumeral joint space narrowing. Calcific tendinopathy at the insertion of the supraspinatus tendon. Unremarkable soft tissue contours. IMPRESSION: #. Osteoarthritis and rotator cuff calcific tendinopathy.
== END 2018-07-04 09:25 | disposition home or self-care (01) ==
LOC: UCEAST 07:18
DX: M75.32 Calcific tendinitis of left shoulder (principal); M19.012 Primary osteoarthritis, left shoulder; Z79.82 Long term (current) use of aspirin; Z96.649 Presence of unspecified artificial hip joint; Z88.1 Allergy status to other antibiotic agents; Z88.5 Allergy status to narcotic agent; Z88.0 Allergy status to penicillin; Z88.2 Allergy status to sulfonamides; Z88.8 Allergy status to other drugs, medicaments and biological substances
CPT/HCPCS: 93005; 99212; A9270-GY; G0463